=== PATIENT | male | born 1980 | race Caucasian/White ===

== ENCOUNTER 2018-09-25 09:32 | Emergency (ER) | payer OTHER ==
[~2018-09-25] VITALS: Ht 167.6 cm; Wt 62.1 kg
== END 2018-09-25 15:32 | disposition home or self-care (01) ==
LOC: ER 09:32
DX: R10.2 Pelvic and perineal pain (principal)

== ENCOUNTER 2019-01-18 08:11 | Outpatient (CLI) | payer OTHER | END 2019-01-18 08:14 | disposition home or self-care (01) | LOC: SONOGRAMA 08:11 → MAMO-SONO 08:15 | DX: R10.84 Generalized abdominal pain (principal) ==

== ENCOUNTER 2019-08-04 10:58 | Outpatient (CLI) | payer OTHER | END 2019-08-04 15:00 | disposition home or self-care (01) | LOC: EKG 10:58 | DX: R51 Headache (principal); M54.2 Cervicalgia; Z13.6 Encounter for screening for cardiovascular disorders ==

== ENCOUNTER 2019-11-23 15:33 | Emergency (ER) | payer OTHER ==
[~2019-11-23] VITALS: Ht 167.6 cm; Wt 61.2 kg
== END 2019-11-23 19:17 | disposition home or self-care (01) ==
LOC: ER 15:33
DX: S01.82XA Laceration with foreign body of other part of head, initial encounter (principal); Y28.8XXA Contact with other sharp object, undetermined intent, initial encounter; Y93.H3 Activity, building and construction; Y92.89 Other specified places as the place of occurrence of the external cause; Y99.8 Other external cause status

== ENCOUNTER 2020-12-20 08:57 | Outpatient (CLI) | payer OTHER | END 2020-12-20 09:13 | disposition home or self-care (01) | LOC: RAD 08:57 | PROVIDERS: ATTEND General Practice | DX: R10.2 Pelvic and perineal pain (principal); K40.20 Bilateral inguinal hernia, without obstruction or gangrene, not specified as recurrent; R51.9 Headache, unspecified | CPT/HCPCS: 70551 ==

== ENCOUNTER → 2021-02-18 07:28 | Outpatient (CLI) | payer OTHER | END | disposition home or self-care (01) | LOC: RAD 07:28 | PROVIDERS: ATTEND Physical Medicine & Rehabilitation | DX: M54.2 Cervicalgia (principal); M25.512 Pain in left shoulder; M16.12 Unilateral primary osteoarthritis, left hip ==

== ENCOUNTER 2023-05-01 09:35 | Outpatient (CLI) | payer OTHER | END 2023-05-01 09:48 | disposition home or self-care (01) | LOC: RAD 09:35 | PROVIDERS: ATTEND Surgery Surgery of the Hand | DX: M15.0 Primary generalized (osteo)arthritis (principal) ==

== ENCOUNTER 2024-02-08 09:07 | Outpatient (CLI) | payer OTHER | END 2024-02-08 09:20 | disposition home or self-care (01) | LOC: RAD 09:07 | PROVIDERS: ATTEND Physical Medicine & Rehabilitation | DX: M19.031 Primary osteoarthritis, right wrist (principal); M19.032 Primary osteoarthritis, left wrist; G56.01 Carpal tunnel syndrome, right upper limb; G56.02 Carpal tunnel syndrome, left upper limb ==

== ENCOUNTER 2024-03-06 08:36 | Outpatient (CLI) | payer OTHER | END 2024-03-06 08:37 | disposition home or self-care (01) | LOC: NUCLEAR 08:36 | PROVIDERS: ATTEND Surgery Surgery of the Hand | DX: M15.0 Primary generalized (osteo)arthritis (principal) ==

== ENCOUNTER 2024-03-14 15:39 | Outpatient (CLI) | payer OTHER | END 2024-03-14 15:49 | disposition home or self-care (01) | LOC: RAD 15:39 | PROVIDERS: ATTEND Orthopaedic Surgery | DX: Q65.89 Other specified congenital deformities of hip (principal); M25.851 Other specified joint disorders, right hip; M25.852 Other specified joint disorders, left hip ==

== ENCOUNTER 2024-11-25 07:17 | Outpatient (CLI) | payer OTHER | END 2024-11-25 07:21 | disposition home or self-care (01) | LOC: RAD 07:17 | PROVIDERS: ATTEND Orthopaedic Surgery | DX: M25.851 Other specified joint disorders, right hip (principal); M25.852 Other specified joint disorders, left hip ==

== ENCOUNTER 2025-03-02 08:21 | Outpatient (CLI) | payer OTHER | END 2025-03-02 08:40 | disposition home or self-care (01) | LOC: RAD 08:21 | PROVIDERS: ATTEND Orthopaedic Surgery | DX: Q65.89 Other specified congenital deformities of hip (principal); M25.851 Other specified joint disorders, right hip; M25.852 Other specified joint disorders, left hip ==